=== PATIENT | female | born 1950 | race Caucasian/White ===

== ENCOUNTER 2018-03-01 00:07 | Observation (INO) | payer MEDICARE, MEDICAID ==
[2018-03-01] VITALS (13 sets, daily range): BP systolic 110–156; BP diastolic 59–92; PULSE 56–72; RESP 14–20; TEMP 96.3–98.1; O2SAT 95–99
[~2018-03-01] VITALS: Ht 152.4 cm; Wt 72.2 kg
[2018-03-01] MEDS ORDERED: NITROGLYCERIN 2% OINT 1 GM PACKET TOP ONE (00:45)
[2018-03-01] MEDS ORDERED: SODIUM CHLORIDE 0.9% FLUSH 10 ML FLUSH IVF PRN (00:45)
[2018-03-01] MEDS ORDERED: MORPHINE SULFATE 4 MG/ML INJ IV PUSH ONE (00:45)
[2018-03-01] MEDS ORDERED: ZOCO40TA PO (00:59)
[2018-03-01] MEDS ORDERED: FURO1TAB60 PO (00:59)
[2018-03-01] MEDS ORDERED: GABA300C5 PO (00:59)
[2018-03-01] MEDS ORDERED: METO25TA3 PO (00:59)
[2018-03-01] MEDS ORDERED: DIPH25CA PO (00:59)
[2018-03-01] MEDS ORDERED: IBUP200T47 PO (00:59)
[2018-03-01] MEDS ORDERED: ASPI-516 CHEW (01:02)
[2018-03-01 01:22] LABS: AUTOMATED NEUTROPHIL # 4.1 TH/MM3 (1.8-7.7); BASOPHIL % 0.5 % (0.0-2.0); EOSINOPHIL # 0.2 TH/MM3 (0-0.4); EOSINOPHIL % 3.4 % (0.0-4.0); HEMATOCRIT 35.5 % (35.0-46.0); HEMOGLOBIN 11.8 GM/DL (11.6-15.3); LYMPH % 31.8 % (9.0-44.0); LYMPHOCYTE # 2.2 TH/MM3 (1.0-4.8); MEAN CELL VOLUME 85.3 FL (80.0-100.0); MEAN CORPUSCULAR HEMOGLOBIN 28.4 PG (27.0-34.0); MEAN CORPUSCULAR HGB CONC 33.3 % (32.0-36.0); MEAN PLATELET VOLUME 8.1 FL (7.0-11.0); MONO % 5.4 % (0.0-8.0); MONOCYTE # 0.4 TH/MM3 (0-0.9); NEUT % 58.9 % (16.0-70.0); PLATELET COUNT 238 TH/MM3 (150-450); RED BLOOD COUNT 4.16 MIL/MM3 (4.00-5.30); RED CELL DISTRIBUTION WIDTH 12.9 % (11.6-17.2); WHITE BLOOD COUNT 6.9 TH/MM3 (4.0-11.0)
[2018-03-01 01:29] LABS: CHLORIDE 112 MEQ/L (98-107); SODIUM (NA) 147 MEQ/L (136-145)
[2018-03-01 01:32] LABS: CALCIUM 8.5 MG/DL (8.5-10.1)
[2018-03-01 01:33] LABS: BICARBONATE 31.3 MEQ/L (21.0-32.0); BLOOD UREA NITROGEN 22 MG/DL (7-18); GLUCOSE,RANDOM 135 MG/DL (74-106); MAGNESIUM 2.4 MG/DL (1.5-2.5); PROTHROMBIN TIME - PATIENT 10.1 SEC (9.8-11.6)
[2018-03-01 01:36] LABS: CREATININE 0.75 MG/DL (0.50-1.00); GLOMERULAR FILTRATION RATE 77 ML/MIN (>89)
[2018-03-01 01:41] LABS: TROPONIN I LESS THAN 0.02 NG/ML (0.02-0.05)
--- NOTE | 2018-03-01 01:45 | RADRPT ---
EXAM DATE: 03/01/2018 1:39 AM EDT AGE/SEX: 67 years / Female INDICATIONS: Chest pain. CLINICAL DATA: This is the patient's initial encounter. Patient reports that signs and symptoms have been present for 1 day and indicates a pain score of 6/10. MEDICAL/SURGICAL HISTORY: None. None. COMPARISON: No prior exams available for comparison. FINDINGS: The lungs are clear without infiltrate, nodule, or mass. There is no appreciable pleural effusion for technique. Heart and mediastinum are unremarkable. CONCLUSION: No acute cardiopulmonary disease. Electronically signed by: Lindsay Acevedo MD 03/01/2018 1:44 AM EDT
--- NOTE | 2018-03-01 02:10 | PD ---
HPI . Chest discomfort Chief Complaint: Chest Pain Time Seen by Provider: 00:45 Travel History International Travel<30 days: No Contact w/Intl Traveler<30days: No Traveled to known affect area: No History of Present Illness HPI This patient is a very poor historian. She presents with the chief complaint of chest discomfort which started about 4 PM. She describes it as a "thud." It has waxed and waned between a 3 and a 9. It has been continuous. It has been associated with shortness of breath. She did take 4 baby aspirin prior to arrival. She reports no obvious change in her symptoms with the aspirin. Patient also reports a history of a previous heart attack and states that her symptoms are similar. She was treated for her heart attack in [place]. She states that she did not require surgery or stents. [facility] Past Medical History High Cholesterol: Yes Diminished Hearing: No Hypertension: Yes Medical other: Yes (DEVELOPMENTAL DELAY PER PATIENT) Neurologic: Yes (NARCOLEPSY, NERVE PAIN) Myocardial Infarction: Yes Tetanus Vaccination: Unknown : 3 Para: 2 Past Surgical History Abdominal Surgery: Yes Gynecologic Surgery: Yes Hysterectomy: Yes (CA) Tonsillectomy: Yes Social History Alcohol Use: No Tobacco Use: No Substance Use: No Allergies-Medications (Allergen,Severity, Reaction): Coded Allergies: Penicillins (Verified Allergy, Unknown, 03/01/18) Reported Meds & Prescriptions Reported Meds & Active Scripts Active Reported Aspirin 81 Mg Chew 324 Mg CHEW DAILY Zocor (Simvastatin) 40 Mg Tab 40 Mg PO DAILY Metoprolol Tartrate 25 Mg Tab 25 Mg PO BID Lasix (Furosemide) 40 Mg Tab 40 Mg PO DAILY Diphenhydramine (Diphenhydramine HCl) 25 Mg Cap 25 Mg PO HS PRN Ibuprofen 200 Mg Tab 200 Mg PO Q4H PRN Gabapentin 300 Mg Cap 300 Mg PO TID Review of Systems Except as stated in HPI: all other systems reviewed are Neg Cardiovascular: Positive: Chest Pain or Discomfort Respiratory: Positive: Shortness of Breath Physical Exam Narrative GENERAL: Awake and alert and in no acute distress. SKIN: warm/dry. HEAD: Normocephalic. Atraumatic. EYES: Pupils equal and round. No scleral icterus. No injection or drainage. ENT: No nasal bleeding or discharge. Mucous membranes pink and moist. NECK: Trachea midline. Full range of motion without pain.. CARDIOVASCULAR: Regular rate and rhythm. Heart sounds normal. RESPIRATORY: No accessory muscle use. Clear to auscultation. Breath sounds equal bilaterally. GASTROINTESTINAL: Abdomen soft. Nontender. Bowel sounds present. Nondistended. MUSCULOSKELETAL: No obvious deformities. NEUROLOGICAL: Awake and alert. No obvious cranial nerve deficits. Motor grossly within normal limits. Normal speech. PSYCHIATRIC: Appropriate mood and affect; insight and judgment normal. Data Data Last Documented VS Vital Signs Date Time Temp Pulse Resp B/P (MAP) Pulse Ox O2 Delivery O2 Flow Rate FiO2 03/01/18 01:26 20 03/01/18 00:52 65 148/92 (110) 98 03/01/18 00:22 98.1 Orders Orders Basic Metabolic Panel (Bmp) (03/01/18 00:45) Complete Blood Count With Diff (03/01/18 00:45) Magnesium (Mg) (03/01/18 00:45) Prothrombin Time / Inr (Pt) (03/01/18 00:45) Act Partial Throm Time (Ptt) (03/01/18 00:45) Troponin I (03/01/18 00:45) Ecg Monitoring (03/01/18 00:45) Iv Access Insert/Monitor (03/01/18 00:45) Oximetry (03/01/18 00:45) Morphine Inj (Morphine Inj) (03/01/18 00:45) Nitroglycerin 2% Oint (Nitroglycerin 2% (03/01/18 00:45) Sodium Chloride 0.9% Flush (Ns Flush) (03/01/18 00:45) Chest, Pa & Lat (03/01/18 00:45) Potassium Chloride (Kcl) (03/01/18 02:15) Labs Laboratory Tests Test 03/01/18 01:10 White Blood Count 6.9 TH/MM3 Red Blood Count 4.16 MIL/MM3 Hemoglobin 11.8 GM/DL Hematocrit 35.5 % Mean Corpuscular Volume 85.3 FL Mean Corpuscular Hemoglobin 28.4 PG Mean Corpuscular Hemoglobin Concent 33.3 % Red Cell Distribution Width 12.9 % Platelet Count 238 TH/MM3 Mean Platelet Volume 8.1 FL Neutrophils (%) (Auto) 58.9 % Lymphocytes (%) (Auto) 31.8 % Monocytes (%) (Auto) 5.4 % Eosinophils (%) (Auto) 3.4 % Basophils (%) (Auto) 0.5 % Neutrophils # (Auto) 4.1 TH/MM3 Lymphocytes # (Auto) 2.2 TH/MM3 Monocytes # (Auto) 0.4 TH/MM3 Eosinophils # (Auto) 0.2 TH/MM3 Basophils # (Auto) 0.0 TH/MM3 CBC Comment DIFF FINAL Differential Comment Prothrombin Time 10.1 SEC Prothromb Time International Ratio 1.0 RATIO Activated Partial Thromboplast Time 24.3 SEC Blood Urea Nitrogen 22 MG/DL Creatinine 0.75 MG/DL Random Glucose 135 MG/DL Calcium Level 8.5 MG/DL Magnesium Level 2.4 MG/DL Sodium Level 147 MEQ/L Potassium Level 3.3 MEQ/L Chloride Level 112 MEQ/L Carbon Dioxide Level 31.3 MEQ/L Anion Gap 4 MEQ/L Estimat Glomerular Filtration Rate 77 ML/MIN Troponin I LESS THAN 0.02 NG/ML MDM Medical Decision Making Medical Screen Exam Complete: Yes Emergency Medical Condition: Yes Interpretation(s) EKG shows a sinus rhythm with no acute ischemic changes. Differential Diagnosis Differential diagnosis of chest pain includes but is not limited to musculoskeletal pain, pulmonary embolism, acute coronary syndrome, pneumonia, pleurisy Narrative Course Patient presents with a chief complaint of a discomfort in her chest. She also has some shortness of breath. She states that her symptoms are similar to symptoms associated with a previous heart attack. She did take aspirin prior to arrival. An IV was started. She has been given IV morphine. She has also been given Nitropaste. Her symptoms are all improving. CBC & BMP Diagram 03/01/18 01:10 Calcium Level 8.5, Magnesium Level 2.4 trop < 0.02 I will admit the patient to the chest pain center for further evaluation. Diagnosis Primary Impression: Chest pain Qualified Codes: R07.9 - Chest pain, unspecified Additional Impression: Hypokalemia Admitting Information Admitting Physician Requests: Observation Condition: Stable Nabila Hu MD March 01, 2018 02:10
[2018-03-01] MEDS ORDERED: POTASSIUM CHLORIDE 20 MEQ CONTROLLED RELEASE TAB PO ONE (02:15)
[2018-03-01] MEDS ORDERED: ACETAMINOPHEN 500 MG CPLT PO PRN (02:30)
[2018-03-01] MEDS ORDERED: SODIUM CHLORIDE 0.9% FLUSH 10 ML FLUSH IV FLUSH PRN (02:30)
[2018-03-01] MEDS ORDERED: HEPARIN SODIUM - SQ 10,000 UNITS/ML VIAL SQ SCH (02:30)
[2018-03-01] MEDS ORDERED: ONDANSETRON HCL 4 MG/2 ML VIAL IV PUSH PRN (02:30)
[2018-03-01] MEDS: SODIUM CHLOR 0.9% 1000 ML INJ 1,000 ML IV SCH ×2 (02:53→12:23)
[2018-03-01] MEDS ORDERED: TRAM50TA PO (03:13)
[2018-03-01 07:03] LABS: TROPONIN I LESS THAN 0.02 NG/ML (0.02-0.05)
--- NOTE | 2018-03-01 07:15 | EKG ---
Date Performed: 03/01/2018 Time Performed: 03:54:26 PTAGE: 67 years EKG: SINUS BRADYCARDIA BORDERLINE ECG Since PREVIOUS TRACING , no significant change noted PREVIOUS TRACIN03/01/2018 00.36 DOCTOR: Cheli Rubin Interpretating Date/Time 03/01/2018 07:14:06
--- NOTE | 2018-03-01 07:15 | EKG ---
Date Performed: 03/01/2018 Time Performed: 00:36:30 PTAGE: 67 years EKG: Sinus rhythm NORMAL ECG Since PREVIOUS TRACING , no significant change noted PREVIOUS TRACIN04/21/2005 14.37 DOCTOR: Cheli Rubin Interpretating Date/Time 03/01/2018 07:14:17
[2018-03-01 08:53] LABS: TROPONIN I LESS THAN 0.02 NG/ML (0.02-0.05)
[2018-03-01] MEDS ORDERED: ASPIRIN 325 MG TAB PO SCH (09:00)
[2018-03-01] MEDS ORDERED: GABAPENTIN 300 MG CAP PO SCH (09:00)
[2018-03-01] MEDS ORDERED: PRAVASTATIN SOD 80 MG TAB PO SCH (09:00)
[2018-03-01] MEDS ORDERED: SODIUM CHLORIDE 0.9% FLUSH 10 ML FLUSH IV FLUSH SCH (09:00)
[2018-03-01] MEDS ORDERED: FUROSEMIDE 40 MG TAB PO SCH (09:00)
--- NOTE | 2018-03-01 09:13 | HHI.HP ---
[facility] Primary [facility] Physician No Primary Care Physician Admission Diagnosis Chest pain Diagnoses: (1) Chest pain (2) Hypokalemia Chief Complaint: Chest pressure Travel History International Travel<30 Days: No Contact w/Intl Traveler <30 Da: No Traveled to Known Affected Are: No History of Present Illness Written by Yadira Murray, acting as scribe for Dr. Miranda on 03/01/18 at 09:13. This is a pleasant 67-year-old female patient with a known medical history of hypertension, hyperlipidemia and developmental delay who presented to the ED with complaints of chest pressure. Patient is able to provide a history despite her developmental delay. She states that yesterday afternoon she spent some time outside in the heat and suddenly developed a midsternal chest pressure that radiated to her back and neck, that was characterized as pressure- like and steady in nature, she states that the pressure would intermittently improve and then worsened. Patient characteristically describes the sensation as an intermittent "thud" in her chest. Patient denies any known alleviating or worsening factors for her symptoms. She denies any associated nausea or vomiting, does not make to associated shortness of breath and while the pressure was present she states that she felt like she "could not get any air in ". Patient admits to taking 4 baby aspirin prior to arrival. Denies any pain and unable to rate on pain scale. Patient does admit that she has had this type of pressure in the past, she does admit to a previous heart attack back in April 2016, states at that time she did not have any intervention with stents or even a cardiac catheterization. Patient does admit to undergoing a cardiac nuclear stress test at that time as well as roughly a year ago which was reportedly negative. Patient is from [place], follows with a inspector metal fabricating but is unsure of his name and has not seen him in quite some time. Patient denies any recent illness including fever, chills, cough, abdominal pain, nausea , vomiting, diarrhea or dysuria. Review of Systems Constitutional: COMPLAINS OF: Diaphoretic episodes, Fatigue, Chills, DENIES: Fever Eyes: DENIES: Diplopia Respiratory: COMPLAINS OF: Shortness of breath, DENIES: Cough, Sputum production Cardiovascular: COMPLAINS OF: Chest pain, Palpitations Gastrointestinal: DENIES: Abdominal pain, Black stools, Bloody stools, Constipation, Diarrhea, Nausea, Vomiting Musculoskeletal: DENIES: Joint pain Hematologic/lymphatic: DENIES: Bruising Immunologic/allergic: DENIES: Eczema Neurologic: DENIES: Abnormal gait Psychiatric: COMPLAINS OF: Anxiety Except as stated in HPI: all other systems reviewed are Neg Past Family Social History Past Medical History Hypertension Hyperlipidemia Developmental delay History of narcolepsy and nerve pain History of CA Past Surgical History Hysterectomy Tonsillectomy Reported Medications Active Reported Tramadol (Tramadol HCl) 50 Mg Tab 50 Mg PO QID PRN Aspirin 81 Mg Chew 324 Mg CHEW DAILY Zocor (Simvastatin) 40 Mg Tab 40 Mg PO DAILY Metoprolol Tartrate 25 Mg Tab 25 Mg PO BID Lasix (Furosemide) 40 Mg Tab 40 Mg PO DAILY Diphenhydramine (Diphenhydramine HCl) 25 Mg Cap 25 Mg PO HS PRN Ibuprofen 200 Mg Tab 200 Mg PO Q4H PRN Gabapentin 300 Mg Cap 300 Mg PO TID Allergies: Coded Allergies: Penicillins (Verified Allergy, Unknown, 03/01/18) Active Ordered Medications Current Medications Medications (Trade) Dose Ordered Sig/Gloria Route Start Time Stop Time Status Last Admin Sodium Chloride 1,000 ml @ 100 mls/hr Q10H IV 03/01/18 02:23 03/01/18 02:53 (NS Flush) 2 ml UNSCH PRN IV FLUSH 03/01/18 02:30 (NS Flush) 2 ml BID IV FLUSH 03/01/18 09:00 (Tylenol) 500 mg Q4H PRN PO 03/01/18 02:30 (Zofran Inj) 4 mg Q6H PRN IV PUSH 03/01/18 02:30 (Heparin Inj) 5,000 units Q12H SQ 03/01/18 02:30 03/01/18 02:53 (Aspirin) 325 mg DAILY PO 03/01/18 09:00 03/01/18 08:39 (Lasix) 40 mg DAILY PO 03/01/18 09:00 03/01/18 08:39 (Neurontin) 300 mg TID PO 5/30/18 09:00 03/01/18 08:39 (Pravachol) 80 mg DAILY PO 03/01/18 09:00 03/01/18 08:40 Family History Both mother and father have a history of cardiovascular disease. Social History Patient denies any tobacco, alcohol or illicit drug use. Physical Exam Vital Signs Vital Signs Date Time Temp Pulse Resp B/P (MAP) Pulse Ox O2 Delivery O2 Flow Rate FiO2 03/01/18 07:57 95 21 03/01/18 07:50 96.9 68 18 118/59 (78) 96 03/01/18 03:55 97 21 03/01/18 03:50 56 03/01/18 03:30 96.3 63 20 139/65 (89) 99 03/01/18 03:20 66 20 148/92 (110) 98 03/01/18 02:30 64 20 141/72 (95) 98 03/01/18 01:30 66 20 129/66 (87) 98 03/01/18 01:28 20 03/01/18 01:26 20 03/01/18 00:52 65 20 148/92 (110) 98 03/01/18 00:42 66 20 148/92 (110) 97 03/01/18 00:22 98.1 63 14 156/77 (103) 98 Physical Exam GENERAL: Well-developed, well-nourished patient in [facility]. SKIN: Warm and dry. No rash. HEAD: Normocephalic. Atraumatic. EYES: Pupils equal and round. No scleral icterus. No injection or drainage. ENT: No nasal bleeding or discharge. Mucous membranes pink and moist. NECK: Supple. Trachea midline. CARDIOVASCULAR: Regular rate and rhythm. S1, S2 noted. No murmur appreciated. No chest pain to palpation. RESPIRATORY: No accessory muscle use. Clear to auscultation. Breath sounds equal bilaterally. GASTROINTESTINAL: Abdomen soft, non-tender, nondistended. Normoactive bowel sounds x4. MUSCULOSKELETAL: No obvious deformities. Extremities without clubbing, cyanosis , or edema. NEUROLOGICAL: Awake and alert. No obvious cranial nerve deficits. Motor grossly within normal limits. 5/5 muscle strength in bilateral upper and lower extremities. Normal speech. Laboratory Laboratory Tests Test 03/01/18 01:10 03/01/18 05:13 03/01/18 08:15 White Blood Count 6.9 Red Blood Count 4.16 Hemoglobin 11.8 Hematocrit 35.5 Mean Corpuscular Volume 85.3 Mean Corpuscular Hemoglobin 28.4 Mean Corpuscular Hemoglobin Concent 33.3 Red Cell Distribution Width 12.9 Platelet Count 238 Mean Platelet Volume 8.1 Neutrophils (%) (Auto) 58.9 Lymphocytes (%) (Auto) 31.8 Monocytes (%) (Auto) 5.4 Eosinophils (%) (Auto) 3.4 Basophils (%) (Auto) 0.5 Neutrophils # (Auto) 4.1 Lymphocytes # (Auto) 2.2 Monocytes # (Auto) 0.4 Eosinophils # (Auto) 0.2 Basophils # (Auto) 0.0 CBC Comment DIFF FINAL Differential Comment Prothrombin Time 10.1 Prothromb Time International Ratio 1.0 Activated Partial Thromboplast Time 24.3 Blood Urea Nitrogen 22 Creatinine 0.75 Random Glucose 135 Calcium Level 8.5 Magnesium Level 2.4 Sodium Level 147 Potassium Level 3.3 Chloride Level 112 Carbon Dioxide Level 31.3 Anion Gap 4 Estimat Glomerular Filtration Rate 77 Troponin I LESS THAN 0.02 LESS THAN 0.02 Total Creatine Kinase 105 Creatine Kinase MB 1.2 Result Diagram: 03/01/1810903/01/18 011 Imaging Last Impressions Chest X-Ray 03/01/18 0045 Signed Impressions: CONCLUSION: No acute cardiopulmonary disease. Septic Shock Reassessment Septic shock perfusion: reassessment completed Caprini VTE Risk Assessment Caprini VTE Risk Assessment: Mod/High Risk (score >= 2) Caprini Risk Assessment Model Point Value = 1 Point Value = 2 Point Value = 3 Point Value = 5 Age 41-60 Minor surgery BMI > 25 kg/m2 Swollen legs Varicose veins or History of unexplained or recurrent spontaneous Oral contraceptives or hormone replacement Sepsis (< 1 month) Serious lung disease, including pneumonia (< 1 month) Abnormal pulmonary function Acute myocardial infarction Congestive heart failure (< 1 month) History of inflammatory bowel disease Medical patient at bed rest Age 61-74 Arthroscopic surgery Major open surgery (> 45 min) Laparoscopic surgery (> 45 min) Malignancy Confined to bed (> 72 hours) Immobilizing plaster cast Central venous access Age >= 75 History of VTE Family history of VTE Factor V Leiden Prothrombin [id number] Lupus anticoagulant Anticardiolipin antibodies Elevated serum homocysteine Heparin-induced thrombocytopenia Other congenital or acquired thrombophilia Stroke (< 1 month) Elective arthroplasty Hip, pelvis, or leg fracture Acute spinal cord injury (< 1 month) Prophylaxis Regimen Total Risk Factor Score Risk Level Prophylaxis Regimen 0-1 Low Early ambulation 2 Moderate Order ONE of the following: *Sequential Compression Device (SCD) *Heparin 5000 units SQ BID 3-4 Higher Order ONE of the following medications: *Heparin 5000 units SQ TID *Enoxaparin/Lovenox 40 mg SQ daily (WT < 150 kg, CrCl > 30 mL/min) *Enoxaparin/Lovenox 30 mg SQ daily (WT < 150 kg, CrCl > 10-29 mL/min) *Enoxaparin/Lovenox 30 mg SQ BID (WT < 150 kg, CrCl > 30 mL/min) AND/OR *Sequential Compression Device (SCD) 5 or more Highest Order ONE of the following medications: *Heparin 5000 units SQ TID (Preferred with Epidurals) *Enoxaparin/Lovenox 40 mg SQ daily (WT < 150 kg, CrCl > 30 mL/min) *Enoxaparin/Lovenox 30 mg SQ daily (WT < 150 kg, CrCl > 10-29 mL/min) *Enoxaparin/Lovenox 30 mg SQ BID (WT < 150 kg, CrCl > 30 mL/min) AND *Sequential Compression Device (SCD) Assessment and Plan Problem List: (1) Chest pain ICD Code: R07.9 - Chest pain, unspecified Status: Acute (2) Hypokalemia ICD Code: E87.6 - Hypokalemia Status: Acute (3) Hypertension ICD Code: I10 - Essential (primary) hypertension (4) Hyperlipidemia ICD Code: E78.5 - Hyperlipidemia, unspecified (5) Developmental delay ICD Code: R62.50 - Unspecified lack of expected normal physiological development in childhood Assessment and Plan This is a pleasant 67-year-old female patient with a known medical history of hypertension, hyperlipidemia and developmental delay who presented to the ED with complaints of chest pressure. Patient is able to provide a history despite her developmental delay. Atypical chest pain rule out ACS - Patient has been admitted to the chest pain center for observation. - Serial EKGs and serial troponins have been ordered for ruling out ACS purposes. - Troponin trend flat. - EKG showing normal sinus rhythm, controlled heart rate, no ST changes to indicate ischemia. - Patient was given aspirin and placed on daily. Will continue. - All symptoms have resolved, patient was given nitroglycerin in the ED as well as morphine IV. Patient denies any further chest pressure. - Continue cardiac telemetry, monitor for any arrhythmias. - Patient will undergo a Lexiscan to further rule out any ischemia. - Patient stable at this time and agreeable to the plan. Further hospitalization treatment plan will depend on Lexiscan results. Hypokalemia: Potassium 3.3 on presentation. Was given replacement. Monitor BMP. Hypertension, chronic: We will continue home medications. Continue to monitor blood pressure trends. Hyperlipidemia, chronic: We will continue home statin. DVT prophylaxis: SCDs. Heparin. This note was transcribed by neno Murray. I, Dr. Cheikh Miranda personally performed the history, physical exam, and medical decision making; and confirmed the accuracy of the information in the transcribed note. Authenticated by Dr. Cheikh Miranda on 03/01/18 at 09:13. Code Status Full code Discussed Condition With Patient Problem Qualifiers (1) Chest pain: Qualified Codes: R07.9 - Chest pain, unspecified Yadira Murray March 01, 2018 09:13 Cheikh Miranda MD March 01, 2018 09:14
[2018-03-01] MEDS ORDERED: REGADENOSON INJ 0.4 MG/5 ML SYR IV ONE (09:52)
--- NOTE | 2018-03-01 11:04 | RADRPT ---
EXAM DATE: 03/01/2018 10:57 AM EDT AGE/SEX: 67 years / Female INDICATIONS:Angina. . Substernal chest pain with dyspnea. CLINICAL DATA: This is the patient's initial encounter. Patient reports that signs and symptoms have been present for 1 day and indicates a pain score of 5/10. MEDICAL/SURGICAL HISTORY: . Myocardial infarction. Hysterectomy. Tonsillectomy. COMPARISON: No prior [facility] exams available for comparison. DOSE: 25.4 mCi Tc 99m Myoview at rest 8.5 mCi [id number] at stress 0.4 mg Lexiscan STRESS SYMPTOMS: Dyspnea and headache. EJECTION FRACTION: >70 % TECHNIQUE: The patient underwent pharmacologic stress with infusion of prescribed dose. Continuous ECG tracing was monitored during stress. Gated SPECT imaging was performed after stress and conventi onal SPECT imaging was performed at rest. The examination was performed on a SPECT /CT scanner, both attenuation and non-corrected datasets were reviewed. FINDINGS: The best perfused myocardium is the anterior lateral wall. Gut ity does obscure the inferior wall. I do not see any significant fixed defects. There is no significant redistribution. The ejection fraction is calculated at >70%. RISK CATEGORY: Low (<1% Annual Motality Rate) CONCLUSION: 1. Negative for stress-induced ischemia. Electronically signed by: Marcelo Bravo MD 03/01/2018 11:03 AM EDT
--- NOTE | 2018-03-01 12:32 | HHI.DCPOC ---
Discharge Care Plan Diagnosis: (1) Chest pain (2) Hypertension (3) Developmental delay (4) Hyperlipidemia (5) Hypokalemia Goals to Promote Your Health * To prevent worsening of your condition and complications * To maintain your health at the optimal level Directions to Meet Your Goals Take your medications as prescribed Follow your dietary instruction Follow activity as directed Keep your appointments as scheduled Take your immunizations and boosters as scheduled If your symptoms worsen call your PCP, if no PCP go to Urgent Care Center or Emergency Room Smoking is Dangerous to Your Health. Avoid second hand smoke Call the 24-hour hour crisis hotline for domestic abuse at Yadira Murray March 01, 2018 12:32
--- NOTE | 2018-03-01 17:23 | EKG ---
Date Performed: 03/01/2018 Time Performed: 08:21:51 PTAGE: 67 years EKG: SINUS BRADYCARDIA BORDERLINE ECG Since PREVIOUS TRACING , no significant change noted PREVIOUS TRACIN03/01/2018 03.54 DOCTOR: Cheli Rubin Interpretating Date/Time 03/01/2018 17:23:14
--- NOTE | 2018-03-01 17:26 | TR ---
Date Performed: 03/01/2018 Time Performed: 10:04:25 DOCTOR: Cheli Rubin DRUG LIST: CLINICAL HISTORY: CHEST PAIN REASON FOR TEST: Chest pain REASON FOR ENDING: OBSERVATION: CONCLUSION: Lexiscan stress test was performed under standard four minute protocol. Radionucl[place] e was injected one minute prior to ending the test. No electrocardiographic abormalities were present to suggest ischemia. Nuclear imaging and interpretation are pending. COMMENTS: no ischemia
== END 2018-03-01 13:41 | disposition home or self-care (01) ==
LOC: PHED 00:07 → PHEDA 02:24 → PH3B 03:25
PROVIDERS: ADMIT Hospitalist; ATTEND Hospitalist
DX: R07.9 Chest pain, unspecified (principal); R06.02 Shortness of breath; I25.2 Old myocardial infarction; I10 Essential (primary) hypertension; G47.419 Narcolepsy without cataplexy; R62.50 Unspecified lack of expected normal physiological development in childhood; Z79.899 Other long term (current) drug therapy; E87.6 Hypokalemia; E78.5 Hyperlipidemia, unspecified; Z82.49 Family history of ischemic heart disease and other diseases of the circulatory system; R00.1 Bradycardia, unspecified
CPT/HCPCS: 71046; 78452; 80048; 82550; 82552; 83735; 84484; 85025; 85610; 85730; 93005; 93017; 96361; 96372; 96374; 99285; A9502; G0378; J1644; J2270; J2785; J7030